=== PATIENT | female | born 1960 | race Caucasian/White ===

== ENCOUNTER 2019-08-02 11:34 | Outpatient (CLI) | payer BC | END 2019-08-02 23:59 | disposition home or self-care (01) | LOC: RAD 11:34 | PROVIDERS: ATTEND Internal Medicine Hematology & Oncology | DX: Z45.2 Encounter for adjustment and management of vascular access device (principal); C25.9 Malignant neoplasm of pancreas, unspecified | CPT/HCPCS: 36573; C1751 ==

== ENCOUNTER 2019-12-09 10:39 | Emergency (ER) | payer BC ==
[~2019-12-09] VITALS: Ht 157.5 cm; Wt 55.8 kg
[2019-12-09] MEDS ORDERED: SODIUM CHLORIDE FLUSH 10ML SYR IVF ONE (11:30)
[2019-12-09] MEDS ORDERED: HYDROmorphone 2 MG/ML, 1ML IVPush PRN (11:30)
--- NOTE | 2019-12-09 11:30 | NUR ---
THIS IS A 59 YO F W/ C/O GENERAL ABD PAINX7 WEEKS. PT DENIES N/V/D. LAST BM 2 DAYS AGO. PT HAD CHEMO 3 WEEKS AGO FOR PANCREATIC CANCER. PT VSS, NADN. PT RESTING ON [employer] W/ CALL LIGHT IN REACH. DENIES FURTHER NEEDS AT THIS TIME.
--- NOTE | 2019-12-09 11:40 | NUR ---
PT DOES NOT WANT CT DUE TO EXPOSURE TO RADIATION. REQUESTING MRI, IN ROOM TO SPEAK W/ PT.
--- NOTE | 2019-12-09 11:44 | NUR ---
LABS DRAWN OFF PICC LINE, OK TO ACCESS PER FADI SARGENT.
--- NOTE | 2019-12-09 11:51 | NUR ---
PT OFFERED ORDERED PAIN MEDS. REFUSED AT THIS TIME.
[2019-12-09 11:55] LABS: BASOPHILS # (AUTO) 0.04 x10^3/uL (0-0.1); BASOPHILS % (AUTO) 1 % (0-1); EOSINOPHILS # (AUTO) 0.12 x10^3/uL (0-0.4); EOSINOPHILS % (AUTO) 3 % (1-7); LYMPHOCYTES # (AUTO) 1.18 x10^3/uL (1-3.4); LYMPHOCYTES % (AUTO) 25 % (22-44); MD NO; MEAN CORPUSCULAR HEMOGLOBIN 30.7 pg (27.0-34.8); MEAN CORPUSCULAR HGB CONC 32.7 g/dL (32.4-35.8); MEAN CORPUSCULAR VOLUME 94.1 fL (80-100); MONOCYTES # (AUTO) 0.34 x10^3/uL (0.2-0.8); MONOCYTES % (AUTO) 7 % (2-9); NEUTROPHILS # (AUTO) 3.07 x10^3/uL (1.8-6.8); NEUTROPHILS % (AUTO) 65 % (42-75); PLATELET COUNT 202 x10^3/uL (130-400); RED BLOOD COUNT 3.75 x10^6/uL (3.82-5.3); RED CELL DISTRIBUTION WIDTH 16.2 % (9.6-15.2)
[2019-12-09 12:02] LABS: INTERNATIONAL NORMALIZED RATIO 0.96 (0.93-1.1); PROTHROMBIN TIME 10.2 Seconds (9.6-11.5)
--- NOTE | 2019-12-09 12:09 | NUR ---
PT ON PHONE W/ INSURANCE. REQ CPT CODE FOR MRI OF ABD W/ AND W/O CONTRAST. CALLED RADIOLOGY SCHEDULING TO OBTAIN CODE, GIVEN TO PT. PT REPORTS THEY ARE APPROVED FOR MRI. FADI SARGENT UPDATED.
[2019-12-09 12:10] LABS: ALANINE AMINOTRANSFERASE 285 U/L (12-78); ALBUMIN 3.6 g/dL (3.4-5.0); ANION GAP 7 mmol/L (5-15); CALCIUM 9.2 mg/dL (8.5-10.1); CHLORIDE 104 mmol/L (98-107); CREATININE 0.65 mg/dL (0.55-1.02)
[2019-12-09 12:12] LABS: ALKALINE PHOSPHATASE 252 U/L (45-117); BILIRUBIN,TOTAL 0.4 mg/dL (0.2-1.0); TOTAL PROTEIN 7.4 g/dL (6.4-8.2)
--- NOTE | 2019-12-09 12:55 | NUR ---
PT AMBULATED TO THE W/ A STEADY GAIT. URINE COLLECTED AND SENT TO LAB. PT RETURNED TO [facility] [place] AWAITING MRI.
--- NOTE | 2019-12-09 13:05 | NUR ---
PT INFORMED SHE IS NPO PER FADI SARGENT. PROVIDED GLYCERIN SWABS FOR DRY MOUTH.
[2019-12-09] MEDS ORDERED: HYDROmorphone 1 MG/ML, 1ML INJ ONE (13:20)
--- NOTE | 2019-12-09 13:33 | NUR ---
PT TO MRI.
[2019-12-09 14:00] LABS: MICROSCOPIC INDICATED
[2019-12-09 14:17] LABS: CULTURE INDICATED? YES
[2019-12-09] MEDS ORDERED: GADOTERATE 10 MMOL/20 ML VIAL ONE (14:21)
--- NOTE | 2019-12-09 14:47 | NUR ---
LUNCH RN: PT BACK FROM MRI, RESTING IN ROOM NADN.
[2019-12-09 14:56] VITALS: BP 128/80
--- NOTE | 2019-12-09 15:01 | NUR ---
LUNCH RN: PT REPORTS SHE IS COMFORTABLE AND NO NEW PAIN. PT PLACED BACK ON MONITOR.
--- NOTE | 2019-12-09 15:20 | NUR ---
ALL TESTS RESULTED. PT IS UP FOR RECHECK AT THIS TIME.
--- NOTE | 2019-12-09 15:30 | NUR ---
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 LEVY REQUEST
--- NOTE | 2019-12-09 15:48 | NUR ---
IN ROOM TO UPDATE PT ON RESULTS.
--- NOTE | 2019-12-09 16:16 | NUR ---
Patient given discharge instructions and they have confirmed that they understand the instructions. Patient ambulatory with steady gait.
== END 2019-12-09 16:17 | disposition home or self-care (01) ==
LOC: ED 15:41
DX: C25.1 Malignant neoplasm of body of pancreas (principal); G89.29 Other chronic pain; R10.13 Epigastric pain
CPT/HCPCS: 36415; 74183; 80053; 81001; 83690; 85025; 85610; 87086; 96374; 99285; A9575; J1170

== ENCOUNTER → 2020-01-19 | Outpatient (CLI) | payer BC | END | disposition home or self-care (01) | LOC: RAD 09:05 | PROVIDERS: ATTEND Internal Medicine Hematology & Oncology | DX: C25.9 Malignant neoplasm of pancreas, unspecified (principal) | CPT/HCPCS: 36573; C1751 ==